=== PATIENT | female | born 1985 | race Asian ===

== ENCOUNTER 2017-08-12 17:19 | Inpatient (IN) | payer SELFPAY ==
[~2017-08-12] VITALS: Ht 157 cm; Wt 64.9 kg
[2017-08-12] MEDS ORDERED: LR 1,000 ML IV ONE ×2 (17:58→21:05)
[2017-08-12] MEDS ORDERED: CEFAZOLIN 2 GM IVPB PREMIX 50 ML IV ONE (18:00)
[2017-08-12 18:37] LABS: HEMATOCRIT 39.9 % (36-48); HEMOGLOBIN 13.4 g/dL (12.0-16.0); MEAN CORPUSCULAR HEMOGLOBIN 32 pg (27-31); MEAN CORPUSCULAR HGB CONC 34 % (32-36); MEAN CORPUSCULAR VOLUME 96 fL (79.0-98.0); PLATELET COUNT (AUTO) 213 K/uL (130-430); RED BLOOD CELL COUNT(AUTO) 4.15 MIL/uL (4.2-6.2); RED CELL DISTRIBUTION WIDTH 12.1 % (9.0-15.0); WHITE BLOOD COUNT (AUTO) 15.5 K/uL (4.8-10.8)
[2017-08-12 18:39] LABS: BILIRUBIN,URINE NEGATIVE (NEGATIVE); BLOOD, URINE 3+ (NEGATIVE); CLARITY/URINE CLEAR (CLEAR); COLOR,URINE YELLOW (YELLOW); GLUCOSE,URINE NEGATIVE (NEGATIVE); KETONES,URINE 3+ (NEGATIVE); LEUKOCYTE ESTERASE ,URINE NEGATIVE (NEGATIVE); NITRITE, URINE NEGATIVE (NEGATIVE); PH,URINE 7.5 (5.0-8.0); PROTEIN URINE TRACE (NEGATIVE); UROBILINOGEN,URINE 0.2 (0.2-1.0)
[2017-08-12 18:50] LABS: BACTERIA,URINE MODERATE /HPF (None Seen)
[2017-08-12 19:20] LABS: BAND % (MANUAL) 8 % (0-6); BASOPHILS % (MANUAL) 0 % (0-2); EOSINOPHILS % (MANUAL) 0 % (0-7); LYMPHOCYTES % (MANUAL) 5 % (20-46); MONOCYTES % (MANUAL) 5 % (0-11)
[2017-08-12 19:25] VITALS: BP_SYST 100
[2017-08-12] MEDS ORDERED: OXYTOCIN 10 UNIT/ML VIAL IV ONE (19:51)
[2017-08-12] MEDS ORDERED: NS IRRIG SOLN 1000 ML IR ONE (19:51)
[2017-08-12] MEDS ORDERED: DEXAMETHASONE SOD PHOSPHATE 4 MG/ML VIAL IVP ONE (19:51)
[2017-08-12] MEDS ORDERED: MORPHINE SULFATE 10MG/10ML PF AMP EP ONE (19:51)
[2017-08-12] MEDS ORDERED: MIDAZOLAM HCL 5 MG/5 ML VIAL IVP ONE (19:51)
[2017-08-12] MEDS ORDERED: ONDANSETRON HCL 4 MG/2 ML VIAL IVP ONE (19:51)
[2017-08-12] MEDS ORDERED: METOCLOPRAMIDE HCL 10 MG/2 ML VIAL IVP ONE (19:51)
[2017-08-12] MEDS ORDERED: LR 1,000 ML IV.SOLN IV ONE (19:51)
[2017-08-12] MEDS ORDERED: fentaNYL CITRATE/PF 100 MCG/2 ML AMP IVP ONE (19:51)
[2017-08-12] MEDS ORDERED: MEPERIDINE HCL/PF 100 MG/ML AMP IM ONE (19:51)
[2017-08-12] MEDS ORDERED: OXYTOCIN/NORMAL SALINE 1,000 ML IV ONE ×2 (20:14→21:13)
[2017-08-12] MEDS ORDERED: LR 1,000 ML IV SCH (20:14)
[2017-08-12] MEDS ORDERED: DOCUSATE SODIUM 100 MG CAPSULE PO PRN (20:15)
[2017-08-12] MEDS ORDERED: ANUSOL 1 EA SUPP.RECT (PREPARATION H) RC PRN (20:15)
[2017-08-12] MEDS ORDERED: HYDROcodone/ACETAMIN 5-325 MG TAB (NORCO/ VICODIN) PO PRN ×2 (20:15)
[2017-08-12] MEDS ORDERED: TEMAZEPAM 15 MG CAPSULE PO PRN (20:15)
[2017-08-12] MEDS ORDERED: RHO(D) IMMUNE GLOBULIN/MALTOSE 1500 UNITS/1.3 ML (WINHRO) IM PRN (20:15)
[2017-08-12] MEDS ORDERED: SENNOSIDES/DOCUSATE SODIUM 1 TAB TABLET(SENOKOT-S) PO PRN (20:15)
[2017-08-12] MEDS ORDERED: MEASLES,MUMPS&RUBELLA VACC/PF 12500 UNIT/0.5 ML VIAL SUBQ PRN (20:15)
[2017-08-12] MEDS ORDERED: ACETAMINOPHEN 325 MG TABLET PO PRN (20:15)
[2017-08-12] MEDS ORDERED: LANOLIN 7 GM OINT. TP PRN (20:15)
[2017-08-12] MEDS ORDERED: BISACODYL 10 MG/SUPPOSITORY RC PRN (20:15)
[2017-08-12 20:57] VITALS: BP_SYST 81
[2017-08-12] MEDS ORDERED: fentaNYL CITRATE/PF 100 MCG/2 ML AMP IVP PRN (21:15)
[2017-08-12] MEDS ORDERED: NALBUPHINE HCL 10 MG/ML AMP IVP PRN (21:15)
[2017-08-12] MEDS ORDERED: KETOROLAC TROMETHAMINE 30 MG VIAL IM PRN (21:15)
[2017-08-12] MEDS ORDERED: ePHEDrine sulfate 50 MG/ML VIAL IVP PRN (21:15)
[2017-08-12] MEDS ORDERED: DIPHENHYDRAMINE INJ 50 MG/ML VIAL IVP PRN (21:15)
[2017-08-12] MEDS ORDERED: NALOXONE HCL 0.4 MG/ML AMP (NARCAN) IVP PRN (21:15)
[2017-08-12] MEDS ORDERED: ONDANSETRON HCL 4 MG/2 ML VIAL IVP PRN ×2 (21:15)
[2017-08-13] MEDS: IBUPROFEN 600 MG TABLET PO SCH ×4 (06:03→23:46)
[2017-08-13 07:19] LABS: BASOPHILS % (AUTO) 0.1 % (0.0-2.0); EOSINOPHILS % (AUTO) 0.1 % (0.0-4.0); HEMATOCRIT 35.5 % (36-48); HEMOGLOBIN 12.3 g/dL (12.0-16.0); LYMPHOCYTES # (AUTO) 0.8 K/uL (1.0-5.5); LYMPHOCYTES % (AUTO) 4.1 % (20.5-51.5); MEAN CORPUSCULAR HEMOGLOBIN 33 pg (27-31); MEAN CORPUSCULAR HGB CONC 35 % (32-36); MEAN CORPUSCULAR VOLUME 96 fL (79.0-98.0); MONOCYTES # (AUTO) 0.9 K/uL (0.0-1.0); MONOCYTES % (AUTO) 4.8 % (1.7-9.3); NEUTROPHILS # (AUTO) 16.9 K/uL (1.8-7.7); NEUTROPHILS % (AUTO) 90.9 % (40.0-70.0); PLATELET COUNT (AUTO) 196 K/uL (130-430); RED BLOOD CELL COUNT(AUTO) 3.72 MIL/uL (4.2-6.2); RED CELL DISTRIBUTION WIDTH 12.1 % (9.0-15.0); WHITE BLOOD COUNT (AUTO) 18.6 K/uL (4.8-10.8)
[2017-08-13] MEDS: SIMETHICONE 80 MG TAB.CHEW PO PRN (10:02)
[2017-08-14] MEDS: IBUPROFEN 600 MG TABLET PO SCH ×3 (05:41→17:31)
[2017-08-14] MEDS ORDERED: MILK OF MAGNESIA 30 ML UDC PO PRN (09:00)
[2017-08-15] MEDS: IBUPROFEN 600 MG TABLET PO SCH ×3 (00:09→11:51)
[2017-08-15] MEDS ORDERED: DIPH-TET-PERTUS Vaccine 0.5 ML VIAL (ADACEL) I.M. ONE (09:30)
[2017-08-15] MEDS: SIMETHICONE 80 MG TAB.CHEW PO PRN (11:51)
== END 2017-08-15 12:15 | disposition home or self-care (01) | DRG 765 ==
LOC: SPU 17:19 → OBSVTOIN 17:19
PROVIDERS: ADMIT Obstetrics & Gynecology; ATTEND Obstetrics & Gynecology
PROC: 10D00Z1 Extraction of Products of Conception, Low, Open Approach (ICD-10-PCS; principal; 2017-08-12 19:30)
DX: O34.211 Maternal care for low transverse scar from previous cesarean delivery (principal); O60.14X0 Preterm labor third trimester with preterm delivery third trimester, not applicable or unspecified; Z37.0 Single live birth; Z3A.36 36 weeks gestation of pregnancy
CPT/HCPCS: 36415; 81000-TC; 85007; 85025; 85027; 86592; 86886; 86900; 86901; 87086; 90715; 94760; A4618; J0690; J1100; J2175; J2250; J2274; J2405; J2590; J2765; J3010; J7120